=== PATIENT | female | born 1985 | race American Indian/Alaskan Native ===

== ENCOUNTER 2018-10-05 04:19 | Emergency (ER) | payer OTHER ==
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
[2018-10-05] MEDS ORDERED: ceFAZolin 2 GM in NACL 0.9% 100 ML IV ONE (05:00)
[2018-10-05 05:21] LABS: Basophils # (Auto) 0.1 K/mm3 (0.0-0.1); Basophils % (Auto) 0.4 % (0.0-1.8); Eosinophils # (Auto) 0.1 K/mm3 (0.0-0.4); Eosinophils % (Auto) 0.3 % (0.0-4.3); Hematocrit 39.6 % (30.3-42.9); Hemoglobin 13.3 gm/dl (10.1-14.3); Lymphocytes # (Auto) 1.1 K/mm3 (1.2-5.4); Lymphocytes % (Auto) 6.6 % (13.4-35.0); Mean Corpuscular HGB Conc 34 % (30-34); Mean Corpuscular Volume 99 fl (79-97); Monocytes # (Auto) 0.5 K/mm3 (0.0-0.8); Monocytes % (Auto) 2.7 % (0.0-7.3); Platelet Count 213 K/mm3 (140-440); Red Blood Count 3.99 M/mm3 (3.65-5.03); Red Cell Distribution Width 13.9 % (13.2-15.2)
[2018-10-05 05:39] LABS: BUN/Creatinine Ratio 13; Blood Urea Nitrogen 13 mg/dL (7-17); Calcium 8.8 mg/dL (8.4-10.2); Hemolysis Index 8
[2018-10-05 05:40] VITALS: BP 135/89
== END 2018-10-05 05:55 | disposition other institution (70) ==
LOC: ED 04:19
DX: S01.81XA Laceration without foreign body of other part of head, initial encounter (principal); Z98.890 Other specified postprocedural states; Y08.89XA Assault by other specified means, initial encounter; Y93.89 Activity, other specified; Y92.89 Other specified places as the place of occurrence of the external cause; Y99.8 Other external cause status
CPT/HCPCS: 36415; 80048; 84703; 85025; 96365; 99284; G0480; J0690; 80320

== ENCOUNTER 2019-08-06 07:40 | Emergency (ER) | payer SELFPAY ==
[2019-08-06 07:47] VITALS: BP 123/83
--- NOTE | 2019-08-06 07:51 | Emergency Department Report ---
ED Abdominal Pain HPI - General Chief Complaint: Abdominal Pain Stated Complaint: ABD PAIN Source: patient Mode of arrival: Ambulatory Limitations: No Limitations - History of Present Illness Initial Comments: 34-year-old -Citizen Of [place] female presents to the emergency room for 2-day history of lower abdominal pain that has been intermittent but yesterday started to be more constant. Patient states that the pain is sharp and the last 4 hours. Patient is taking nothing for pain. Patient denies any fever chills no vomiting no vaginal bleeding no vaginal discharge or dysuria or urinary urgency. Patient has taken nothing for her pain. Patient states that her last menstrual period was 06/05/2019 and she has taken 2 home test and states that they are negative. Patient is currently on no medications and no control. Patient has no past medical history no known drug allergies. Patient is 4 para 3 with last menstrual period 06/05/2019. Patient did denies any primary care provider or TRUCK ENGINE TECHNICIAN doctor. MD Complaint: abdominal pain Onset/Timin -: days(s) Location: suprapubic Radiation: none Migration to: no migration Severity scale (0 -10): 7 Quality: sharp Consistency: constant Improves With: nothing Worsens With: nothing Associated Symptoms: nausea. denies: vomiting, diarrhea, fever, chills, constipation, dysuria, hematemesis, hematochezia, melena, hematuria, anorexia - Related Data LMP Date: 06/05/19 Allergies Allergy/AdvReac Type Severity Reaction Status Date / Time No Known Allergies Allergy Unverified 10/05/18 04:27 ED Review of Systems ROS: Stated complaint: ABD PAIN Other details as noted in HPI Comment: All other systems reviewed and negative Constitutional: denies: chills, fever Eyes: denies: eye pain, eye discharge, vision change ENT: denies: ear pain, throat pain Respiratory: denies: cough, shortness of breath, wheezing Cardiovascular: denies: chest pain, palpitations Gastrointestinal: abdominal pain, nausea. denies: vomiting, diarrhea, constipation, hematemesis, melena, hematochezia Genitourinary: abnormal menses. denies: urgency, dysuria, frequency, hematuria, discharge, dyspareunia Musculoskeletal: denies: back pain, joint swelling, arthralgia Skin: denies: rash, lesions Neurological: denies: headache, weakness, paresthesias Psychiatric: denies: anxiety, depression ED Past Medical Hx - Past Medical History Previous Medical History?: No - Surgical History Past Surgical History?: Yes Additional Surgical History: C/SX3 - Social History Smoking Status: Current Some Day Smoker Substance Use Type: None ED Physical Exam - General Limitations: No Limitations General appearance: alert, in no apparent distress - Head Head exam: Present: atraumatic, normocephalic - Eye Eye exam: Present: normal appearance - ENT ENT exam: Present: normal exam, mucous membranes moist - Neck Neck exam: Present: normal inspection, full ROM - GI/Abdominal GI/Abdominal exam: Present: soft, tenderness, normal bowel sounds. Absent: distended, guarding, rebound, rigid - Back Exam Back exam: Present: normal inspection, full ROM - Neurological Exam Neurological exam: Present: alert, oriented X3, normal gait - Psychiatric Psychiatric exam: Present: normal affect, normal mood - Skin Skin exam: Present: warm, dry, intact, normal color. Absent: rash ED Course Vital Signs 08/06/19 07:41 Temperature 98.6 F Pulse Rate 89 Respiratory 18 Rate Blood Pressure 123/83 O2 Sat by Pulse 98 Oximetry ED Medical Decision Making - Radiology Data Radiology results: report reviewed Print Report Referring Physician:RUDDY TOMLINPatient Name:CARL MUNIZPatient ID:[id number] of :[id number]:FemaleAccession:[id number] Date:[id number] Status:[place] [address] Ultrasound Report Signed Patient: CARL MUNIZ MR #: [id number] : 1985 Acct:[id number] Age/Sex: 34 / F ADM Date: 08/06/19 Loc: ED Attending Dr: Ordering Physician: ZIGGY PEREZ Date of Service: 08/06/19 Procedure(s): US pelvic complete Accession Number(s): [id number] cc: ZIGGY PEREZ ULTRASOUND PELVIS INDICATION: Pelvic pain with negative urine and test. TECHNIQUE: Transabdominal. Duplex Color Doppler used: Yes. COMPARISON: None available FINDINGS: Uterus: Present. Size: 9.9 x 4.6 x 7.0 cm. Endometrial complex: Normal measuring 0.5 cm. Mass lesions: None. Additional findings: None. Right Ovary: Size: 3.1 x 1.5 x 1.8 cm Blood flow: Normal. Cyst or mass: None. Left Ovary: Size: 3.1 x 2.4 x 3.9 cm Blood flow: Normal. Cyst or mass: No suspicious solid or cystic lesions. A 2 cm dominant follicle is present. Urinary Bladder: Normal. Free Fluid: None. Additional Findings: None. IMPRESSION: 1. No acute sonographic abnormality of the pelvis. Signer Name: Rory Barnes MD Signed: 08/06/2019 12:37 PM Workstation Name: [id number] - Medical Decision Making 34-year-old -Citizen Of [place] female presents to the emergency room for 2-day history of lower abdominal pain that has been intermittent but yesterday started to be more constant. Patient states that the pain is sharp and the last 4 hours. Patient is taking nothing for pain. Patient denies any fever chills no vomiting no vaginal bleeding no vaginal discharge or dysuria or urinary urgency. Patient has taken nothing for her pain. Patient states that her last menstrual period was 06/05/2019 and she has taken 2 home test and states that they are negative. Patient is currently on no medications and no control. Patient has no past medical history no known drug allergies. Patient is 4 para 3 with last menstrual period 06/05/2019. Patient did denies any primary care provider or TRUCK ENGINE TECHNICIAN doctor. Urinalysis and urine tests has been ordered and pending. Urinalysis is negative for any acute findings test is negative. Ultrasound was ordered which shows normal examination. Patient will be discharged home to follow-up with an TRUCK ENGINE TECHNICIAN. Discussed she can take ibuprofen as needed for pain management. Critical care attestation.: If time is entered above; I have spent that time in minutes in the direct care of this critically ill patient, excluding procedure time. ED Disposition Clinical Impression: Pelvic pain Disposition: DC-01 TO HOME OR SELFCARE Is pt being admited?: No Does the pt Need Aspirin: No Condition: Stable Instructions: Abdominal Pain (ED) Additional Instructions: Ultrasounds negative for any acute findings, negative test, negative urinalysis. You can try taking some ibuprofen for pain management and follow-up with a TRUCK ENGINE TECHNICIAN. Referrals: PRIMARY CAREMD [Primary Care Provider] - 3-5 Days [facility] [Provider Group] - 3-5 Days [facility] [Provider Group] - 3-5 Days
[2019-08-06 08:25] LABS: Bilirubin,Urine NEG (Negative); Blood,Urine SM (Negative); Color,Urine Yellow (Yellow); Mucus,Urine FEW /HPF; Protein,Urine <15 mg/dL mg/dL (Negative)
[2019-08-06 08:27] LABS: HCG Qualitative,Urine Negative (Negative)
[2019-08-06] MEDS ORDERED: IBUPROFEN 600 MG TAB PO ONE (08:54)
--- NOTE | 2019-08-06 12:41 | Ultrasound Report ---
ULTRASOUND PELVIS INDICATION: Pelvic pain with negative urine and test. TECHNIQUE: Transabdominal. Duplex Color Doppler used: Yes. COMPARISON: None available FINDINGS: Uterus: Present. Size: 9.9 x 4.6 x 7.0 cm. Endometrial complex: Normal measuring 0.5 cm. Mass lesions: None. Additional findings: None. Right Ovary: Size: 3.1 x 1.5 x 1.8 cm Blood flow: Normal. Cyst or mass: None. Left Ovary: Size: 3.1 x 2.4 x 3.9 cm Blood flow: Normal. Cyst or mass: No suspicious solid or cystic lesions. A 2 cm dominant follicle is present. Urinary Bladder: Normal. Free Fluid: None. Additional Findings: None. IMPRESSION: 1. No acute sonographic abnormality of the pelvis. Signer Name: Rory Barnes MD Signed: 08/06/2019 12:37 PM Workstation Name: [id number]
== END 2019-08-06 12:52 | disposition home or self-care (01) ==
LOC: ED 07:40
DX: R10.2 Pelvic and perineal pain (principal); R11.0 Nausea; F17.200 Nicotine dependence, unspecified, uncomplicated; Z98.890 Other specified postprocedural states
CPT/HCPCS: 76856; 81001; 81025

== ENCOUNTER 2020-12-11 22:50 | Observation (INO) | payer MEDICAID ==
--- NOTE | 2020-12-11 23:25 | Event Note ---
ED Screening Note Date of service: 12/11/20 Time: 23:23 ED Screening Note: 35-year-old female patient with history of alcohol use presents to the emergency department with complaints of abdominal pain, nausea, vomiting, and back pain starting today. Patient is unable to quantify how many episodes of emesis she has experienced today. Patient admits to alcohol consumption today. Additionally, patient endorses sensation of incomplete voiding when using the bathroom. Last menstrual cycle was approximately November 21. General: Awake, appropriately interactive, no acute distress. Neck: Supple. Full range of motion intact. Cardiovascular: Normal peripheral perfusion. Pulmonary: No respiratory distress. Patient is speaking normally without use of accessory muscles. Abdomen: Diffuse abdominal tenderness most pronounced along the suprapubic area and right lower quadrant. Skin: No apparent rashes or lesions. Neurological: No facial asymmetry. Speech is clear. Follows commands. Patient is alert and oriented. Musculoskeletal: Moves all four extremities spontaneously with normal range of motion. Psych: Cooperative. Appropriate mood and affect. I have greeted and performed a focused rapid initial assessment of this patient. A comprehensive ED assessment and evaluation of the patient, analysis of all test results, and completion of the medical decision-making process will be conducted by additional ED providers. This initial assessment/diagnostic orders/clinical plan/treatment(s) is/are subject to change based on patients health status, clinical progression and re-assessment. Further treatment and workup at subsequent clinical provider's discretion. Patient/guardian urged not to elope from the ED as their condition may be serious if not clinically assessed and managed.
--- NOTE | 2020-12-11 23:28 | Emergency Department Report ---
ED Abdominal Pain HPI - General Chief Complaint: Abdominal Pain Stated Complaint: AB PAIN/VOMITING/CHILLS PUI?: Yes Time Seen by Provider: 12/11/20 23:26 Source: patient Mode of arrival: Ambulatory Limitations: No Limitations - History of Present Illness Initial Comments: Patient is a 35-year-old female that presents emergency room with complaints of nausea, vomiting, abdominal pain. Patient states her symptoms started at 8 AM. Patient states she is also having chills after vomiting. Patient denies fever. Patient denies diarrhea. Patient states her symptoms are worsening. Patient states her pain is 10 out of 10. Patient states she was using alcohol yesterday and excess. Patient states that the pain is in her right lower quadrant and her left lower quadrant. Patient states the right lower quadrant is worse than the left lower quadrant. Patient states she is a . Patient states her last menstrual period was 1 week ago. Patient states she has no Covid symptoms. Patient states she is not vaccinated against COVID-19. Patient states she has no past medical history. Patient states she had facial surgery. Patient denies recent travel. Patient denies recent international travel. Patient denies exposure to the novel coronavirus. Patient denies sick contacts. Patient denies fever and chills. Patient denies cough. Patient denies diarrhea. Patient denies coming in contact with anybody with symptoms of the novel coronavirus. MD Complaint: abdominal pain -: Sudden Location: LLQ Radiation: none Migration to: no migration Severity: severe Severity scale (0 -10): 10 Consistency: constant Improves With: rest Worsens With: vomiting, movement Associated Symptoms: nausea, vomiting, chills. denies: diarrhea, fever, constipation, dysuria, hematemesis, hematochezia, melena, hematuria, anorexia, syncope - Related Data LMP (females 10-50): last week Allergies Allergy/AdvReac Type Severity Reaction Status Date / Time No Known Allergies Allergy Unverified 10/05/18 04:27 ED Review of Systems ROS: Stated complaint: AB PAIN/VOMITING/CHILLS Other details as noted in HPI Constitutional: denies: chills, fever Eyes: denies: eye pain, eye discharge, vision change ENT: denies: ear pain, throat pain Respiratory: denies: cough, shortness of breath, wheezing Cardiovascular: denies: chest pain, palpitations Endocrine: no symptoms reported Gastrointestinal: as per HPI, abdominal pain, nausea, vomiting. denies: diarrhea Genitourinary: denies: urgency, dysuria, discharge Musculoskeletal: denies: back pain, joint swelling, arthralgia Skin: denies: rash, lesions Neurological: denies: headache, weakness, paresthesias Psychiatric: denies: anxiety, depression Hematological/Lymphatic: denies: easy bleeding, easy bruising ED Past Medical Hx - Past Medical History Previous Medical History?: No - Surgical History Past Surgical History?: Yes Additional Surgical History: Facial surgery. C/SX3 - Family History Family history: no significant - Social History Smoking Status: Current Some Day Smoker Substance Use Type: Alcohol ED Physical Exam - General Limitations: No Limitations General appearance: alert, in no apparent distress - Head Head exam: Present: atraumatic, normocephalic - Eye Eye exam: Present: normal appearance - ENT ENT exam: Present: mucous membranes moist - Neck Neck exam: Present: normal inspection - Respiratory Respiratory exam: Present: normal lung sounds bilaterally. Absent: respiratory distress - Cardiovascular Cardiovascular Exam: Present: regular rate, normal rhythm. Absent: systolic murmur, diastolic murmur, rubs, gallop - GI/Abdominal GI/Abdominal exam: Present: soft, tenderness (Right lower quadrant abdominal tenderness to palpation.), normal bowel sounds - Extremities Exam Extremities exam: Present: normal inspection - Back Exam Back exam: Present: normal inspection - Neurological Exam Neurological exam: Present: alert, oriented X3 - Psychiatric Psychiatric exam: Present: normal affect, normal mood - Skin Skin exam: Present: warm, dry, intact, normal color. Absent: rash ED Course Vital Signs 12/11/20 12/12/20 12/12/20 23:04 03:09 04:04 Temperature 98.3 F Pulse Rate 81 66 62 Respiratory 22 16 16 Rate Blood Pressure 139/88 117/68 118/68 [Right] O2 Sat by Pulse 100 100 100 Oximetry - Reevaluation(s) Reevaluation #1: Patient states her pain is better. 12/12/20 01:21 Reevaluation #2: I discussed all results with patient. I discussed plan of care with patient. Patient agrees with plan of care and admission. Patient to be admitted to the hospitalist service. 12/12/20 02:21 - Consultations Consultation #1: Hospitalist consulted for admission. Hospitalist to admit patient. 12/12/20 02:21 Consultation #2: I discussed the case with Dr. Cortez, general surgery. Dr. Cortez wants the patient admitted and have Zosyn and n.p.o. 12/12/20 02:24 ED Medical Decision Making - Lab Data Result diagrams: 12/11/20 23:34 12/11/20 23:34 - Radiology Data Radiology results: report reviewed CT ABDOMEN AND PELVIS WITH IV CONTRAST INDICATION: Bi-Lateral lower abd pain with nausea and vomiting. COMPARISON: None available. TECHNIQUE: All CT scans at this facility use dose modulation, automated exposure control, iterative reconstruction or weight based dosing, when appropriate, to reduce radiation dose to as low as reasonably achievable. FINDINGS: Lung Bases: No significant abnormality. Skeletal System: No acute abnormality. ABDOMEN: Liver: No significant abnormality. Gallbladder: No significant abnormality. Bile Ducts: No significant abnormality. Pancreas: No significant abnormality. Spleen: No significant abnormality. Adrenals: No significant abnormality. Right Kidney: No significant abnormality. Left Kidney: No significant abnormality. Upper GI tract: No significant abnormality. Lymph Nodes: No significant adenopathy. Aorta: No significant abnormality. Additional Findings: No significant abnormality. PELVIS: Colon: No acute abnormality. Urinary Bladder and Distal Ureters: No significant abnormality. Appendix: The appendix is mildly dilated and fluid-filled with periappendiceal inflammation. No appendicolith is seen. There is trace free fluid in the right pelvis. Lymph Nodes: No significant adenopathy. Additional Findings: The cervix is prominent. Gynecologic follow-up is recommended. IMPRESSION: 1. Acute appendicitis. There is trace free fluid. No abscess. 2. Incidental findings, as above. - Medical Decision Making Patient is a 35-year-old female presents to the emergency room for nausea vomiting and abdominal pain. Patient states the pain started ADM the day of the visit. Patient symptoms are worsening. Patient had labs done which were essentially unremarkable except for elevated WBC. Patient's is negative.. Patient was given Dilaudid and Zofran and fluids and the patient responded well to treatment. Patient had a CT scan of the abdomen which showed a acute sinusitis. Patient admitted to the hospital service for further evaluation treatment. General consulted and recommendations received. Critical care time documented due to the multiple reassessments, prolonged time at the bedside, interpretation of diagnostics and labs and discussion with consultants.. - Differential Diagnosis Appendicitis, right lower quadrant pain, gastroenteritis, gastritis, nausea Critical Care Time: Yes Critical care time in (mins) excluding proc time.: 35 Critical care attestation.: If time is entered above; I have spent that time in minutes in the direct care of this critically ill patient, excluding procedure time. Critical Care Time: 35 minutes ED Disposition Clinical Impression: Abdominal pain Qualifiers: Abdominal location: right lower quadrant Qualified Code(s): R10.31 - Right lower quadrant pain Nausea & vomiting Qualifiers: Vomiting type: unspecified Vomiting Intractability: non-intractable Qualified Code(s): R11.2 - Nausea with vomiting, unspecified Acute appendicitis Qualifiers: Acute appendicitis type: with localized peritonitis Appendicitis gangrene presence: without gangrene Appendicitis perforation presence: without perforation Appendicitis abscess presence: without abscess Qualified Code(s): K35.30 - Acute appendicitis with localized peritonitis, without perforation or gangrene UTI (urinary tract infection) Qualifiers: Urinary tract infection type: acute cystitis Hematuria presence: with hematuria Qualified Code(s): N30.01 - Acute cystitis with hematuria Disposition: ADMITTED INPATIENT Is pt being admited?: Yes Does the pt Need Aspirin: No Condition: Critical Time of Disposition: 02:24
[2020-12-12 00:04] LABS: Bacteria,Urine 2+ /HPF (Negative); Bilirubin,Urine NEG (Negative); Blood,Urine MOD (Negative); Color,Urine Yellow (Yellow); Mucus,Urine 2+ /HPF; Urobilinogen,Urine < 2.0 mg/dL (<2.0)
[2020-12-12] MEDS ORDERED: HYDROmorphone 1 MG/1 ML INJ IV ONE (00:04)
[2020-12-12] MEDS ORDERED: ONDANSETRON 4 MG/2 ML INJ IV ONE (00:04)
[2020-12-12] MEDS ORDERED: SODIUM CHLORIDE 0.9% 1000 ML 1,000 ML IV ONE ×2 (00:04→02:23)
[2020-12-12 00:09] LABS: Alanine Aminotransferase 10 units/L (7-56); Albumin 4.4 g/dL (3.9-5); BUN/Creatinine Ratio 11; Blood Urea Nitrogen 10 mg/dL (7-17); Calcium 9.5 mg/dL (8.4-10.2); Hemolysis Index 4
[2020-12-12 00:11] LABS: Hematocrit 40.6 % (30.3-42.9); Hemoglobin 13.9 gm/dl (10.1-14.3); Mean Corpuscular HGB Conc 34 % (30-34); Mean Corpuscular Volume 99 fl (79-97); Platelet Count 286 K/mm3 (140-440); Red Blood Count 4.11 M/mm3 (3.65-5.03); Red Cell Distribution Width 13.6 % (13.2-15.2)
[2020-12-12 01:16] LABS: Total Cells Counted 100
[2020-12-12 01:17] LABS: RBC Morphology Normal
--- NOTE | 2020-12-12 01:55 | Cat Scan Report ---
CT ABDOMEN AND PELVIS WITH IV CONTRAST INDICATION: Bi-Lateral lower abd pain with nausea and vomiting. COMPARISON: None available. TECHNIQUE: All CT scans at this facility use dose modulation, automated exposure control, iterative reconstructi on or weight based dosing, when appropriate, to reduce radiation dose to as low as reasonably achieva ble. FINDINGS: Lung Bases: No significant abnormality. Skeletal System: No acute abnormality. ABDOMEN: Liver: No significant abnormality. Gallbladder: No significant abnormality. Bile Ducts: No significant abnormality. Pancreas: No significant abnormality. Spleen: No significant abnormality. Adrenals: No significant abnormality. Right Kidney: No significant abnormality. Left Kidney: No significant abnormality. Upper GI tract: No significant abnormality. Lymph Nodes: No significant adenopathy. Aorta: No significant abnormality. Additional Findings: No significant abnormality. PELVIS: Colon: No acute abnormality. Urinary Bladder and Distal Ureters: No significant abnormality. Appendix: The appendix is mildly dilated and fluid-filled with periappendiceal inflammation. No appen dicolith is seen. There is trace free fluid in the right pelvis. Lymph Nodes: No significant adenopathy. Additional Findings: The cervix is prominent. Gynecologic follow-up is recommended. IMPRESSION: 1. Acute appendicitis. There is trace free fluid. No abscess. 2. Incidental findings, as above. Signer Name: Param Thorne MD Signed: 12/12/2020 1:50 AM Workstation Name: [id number]
[2020-12-12] MEDS ORDERED: PIPERACIL/TAZOBACTA 4.5/NS 100 4.5 GM/100 ML VIAL IV ONE (02:23)
--- NOTE | 2020-12-12 02:44 | History and Physical Report ---
History of Present Illness Date of examination: 12/12/20 Date of admission: 12/12/20 Chief complaint: Abdominal pain History of present illness: Patient is a 35-year-old female. She is seen in ED at bedside. Patient presents with complaints of nausea, vomiting, abdominal pain. Patient states her symptoms started at 8 AM. Patient states her symptoms are worsening. Patient reports using alcohol yesterday and excess and she said she thinks that is what started her symptoms. Patient reported her right lower quadrant pain. Pain level is 9/10. CT of the abdomen/pelvisshows acute appendicitis. General surgeon has been consulted for possible surgery this morning. Patient is n.p.o since midnight. Past History Past Medical History: No medical history Past Surgical History: ( x3) Social history: smoking, full code. denies: alcohol abuse, prescription drug abuse, IV drug use Family history: no significant family history Medications and Allergies Allergies Allergy/AdvReac Type Severity Reaction Status Date / Time No Known Allergies Allergy Unverified 10/05/18 04:27 Active Meds: Active Medications Piperacillin Sod/Tazobactam Sod (Zosyn/Ns 4.5gm/100ml) 4.5 gm in 100 mls @ 200 mls/hr IV ONCE ONE; Protocol Stop: 12/12/20 02:52 Sodium Chloride (Nacl 0.9% 1000 Ml) 1,000 mls @ 999 mls/hr IV BOLUS ONE Stop: 12/12/20 03:23 Review of Systems Constitutional: no malaise Ears, nose, mouth and throat: no epistaxis, no bleeding gums Cardiovascular: no chest pain Respiratory: no congestion Gastrointestinal: abdominal pain, nausea, no melena Musculoskeletal: no neck stiffness, no neck pain Integumentary: no rash, no pruritis, no redness Neurological: no head injury Psychiatric: no disorientation Hematologic/Lymphatic: no easy bruising, no easy bleeding Exam - Constitutional Vitals: Temp Pulse Resp BP Pulse Ox 98.3 F 81 22 139/88 100 12/11/20 23:04 12/11/20 23:04 12/11/20 23:04 12/11/20 23:04 12/11/20 23:04 General appearance: Present: mild distress, well-nourished - EENT Eyes: Present: PERRL ENT: hearing intact, clear oral mucosa - Neck Neck: Present: supple, normal ROM - Respiratory Respiratory effort: normal Respiratory: bilateral: CTA - Cardiovascular Heart Sounds: Present: S1 & S2. Absent: rub, click - Extremities Extremities: pulses symmetrical, No edema Peripheral Pulses: within normal limits - Abdominal General gastrointestinal: Present: soft, tender, normal bowel sounds Female genitourinary: Present: normal - Integumentary Integumentary: Present: clear, warm, dry - Musculoskeletal Musculoskeletal: gait normal, strength equal bilaterally - Psychiatric Psychiatric: appropriate mood/affect, intact judgment & insight, cooperative - Neurologic Neurologic: CNII-XII intact, moves all extremities - Allied Health Allied health notes reviewed: nursing Results - Labs CBC & Chem 7: 12/11/20 23:34 12/11/20 23:34 Labs: Abnormal lab results 12/11/20 12/11/20 12/11/20 Range/Units 23:34 23:34 Unknown WBC 21.8 H (4.5-11.0) K/mm3 MCV 99 H (79-97) fl MCH 34 H (28-32) pg Seg Neuts % (Manual) 89.0 H (40.0-70.0) % Lymphocytes % (Manual) 7.0 L (13.4-35.0) % Seg Neutrophils # Man 19.4 H (1.8-7.7) K/mm3 Monocytes # (Manual) 0.9 H (0.0-0.8) K/mm3 Carbon Dioxide 19 L (22-30) mmol/L Glucose 160 H (65-100) mg/dL Magnesium 1.20 L (1.7-2.3) mg/dL Total Protein 8.4 H (6.3-8.2) g/dL Urine WBC (Auto) 18.0 H (0.0-6.0) /HPF U Epithel Cells (Auto) 50.0 H (0-13.0) /HPF Assessment and Plan - Patient Problems (1) Acute appendicitis Current Visit: Yes Status: Acute Qualifiers: Acute appendicitis type: with localized peritonitis Appendicitis gangrene presence: without gangrene Appendicitis perforation presence: without perforation Appendicitis abscess presence: without abscess Qualified C ode(s): K35.30 - Acute appendicitis with localized peritonitis, without perforation or gangrene Plan to address problem: CT of the abdomen and pelvicsshowed acute appendicitis with trace free fluid, but no abscess. General surgeon consultedpossible appendectomy in the morning Patient is n.p.o. since midnight (2) Abdominal pain Current Visit: Yes Status: Acute Qualifiers: Abdominal location: right lower quadrant Qualified Code(s): R10.31 - Right lower quadrant pain Plan to address problem: Pain management as needed (3) Nausea & vomiting Current Visit: Yes Status: Acute Qualifiers: Vomiting type: unspecified Vomiting Intractability: non-intractable Qualified Code(s): R11.2 - Nausea with vomiting, unspecified Plan to address problem: Antiemetic as needed Continue n.p.o. status (4) DVT prophylaxis Current Visit: Yes Status: Acute Plan to address problem: SCD
[2020-12-12] MEDS ORDERED: oxyCODONE /ACETAMINOPHEN 5-325MG TAB PO PRN (02:46)
[2020-12-12] MEDS ORDERED: MAGNESIUM HYDROXIDE (MOM) ORAL LIQD UDC PO PRN (02:46)
[2020-12-12] MEDS ORDERED: ALUM-MAG HYDROXIDE-SIMETHICONE 200-200-20MG/5ML ORAL LIQD 30 ML PO PRN (02:46)
[2020-12-12] MEDS ORDERED: ONDANSETRON 4 MG/2 ML INJ IV PRN ×2 (02:46→15:30)
[2020-12-12] MEDS ORDERED: ACETAMINOPHEN 325 MG TAB PO PRN (02:46)
[2020-12-12] MEDS ORDERED: SENNOSIDES 8.6 MG TAB PO PRN (02:46)
[2020-12-12] MEDS ORDERED: NALOXONE 0.4 MG/1 ML INJ IV PRN (02:46)
[2020-12-12] MEDS ORDERED: MORPHINE 2 MG/1 ML INJ IV PRN (02:46)
[2020-12-12] MEDS ORDERED: METOCLOPRAMIDE 10 MG/2 ML INJ IV PRN (02:46)
[2020-12-12] MEDS ORDERED: traZODone 50 MG TAB PO PRN (02:49)
[2020-12-12] MEDS ORDERED: traMADol 50 MG TAB PO PRN (02:49)
[2020-12-12] MEDS ORDERED: SODIUM CHLORIDE 0.9% 1000 ML 1,000 ML IV SCH (03:00)
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
--- NOTE | 2020-12-12 09:51 | Anesthesia Day of Surgery ---
Anesthesia Day of Surgery - Day of Surgery Patient Examined: Yes Patient H&P Reviewed: Yes Patient is NPO: Yes
[2020-12-12] MEDS ORDERED: PIPERACIL/TAZOBACTA 4.5/NS 100 4.5 GM/100 ML VIAL IV SCH (11:00)
--- NOTE | 2020-12-12 12:03 | Consultation ---
History of Present Illness Consult date: 12/12/20 Reason for consult: abdominal pain Chief complaint: Abdominal pain - History of present illness History of present illness: 35-year-old female with no past medical history who presents to the emergency ro om with 48-hour history of right lower quadrant abdominal pain. The pain is localized to the right lower quadrant and is sharp, does not radiate. She has never had pain like this in the past. She states it started suddenly and gradually got worse. She initially thought she may have had food or alcohol poisoning however states that the pain did not get better. She admits to nonbilious/nonbloody emesis. No alleviating or exacerbating factors. She does give a history of constipation. No fevers or chills. Past History Past Medical History: No medical history Past Surgical History: ( x3) Social history: smoking, full code. denies: alcohol abuse, prescription drug abuse, IV drug use Family history: no significant family history Medications and Allergies Allergies Allergy/AdvReac Type Severity Reaction Status Date / Time No Known Allergies Allergy Unverified 10/05/18 04:27 Active Meds: Active Medications Acetaminophen (Acetaminophen 325 Mg Tab) 650 mg PO Q4H PRN PRN Reason: Pain MILD(1-3)/Fever >100.5/WILDE Al Hydrox/Mg Hydrox/Simethicone (Alum-Mag Hydroxide-Simethicone [phone]/5ml Oral Liqd 30 Ml) 30 ml PO Q4H PRN PRN Reason: Indigestion Sodium Chloride (Nacl 0.9% 1000 Ml) 1,000 mls @ 75 mls/hr IV DIRECT TAYE Last Admin: 12/12/20 03:05 Dose: 75 mls/hr Documented by: Piperacillin Sod/Tazobactam Sod (Zosyn/Ns 4.5gm/100ml) 4.5 gm in 100 mls @ 200 mls/hr IV Q8H TAYE; Protocol Magnesium Hydroxide (Magnesium Hydroxide (Mom) Oral Liqd Udc) 30 ml PO Q4H PRN PRN Reason: Constipation Metoclopramide HCl (Metoclopramide 10 Mg/2 Ml Inj) 10 mg IV Q6H PRN PRN Reason: Nausea And Vomiting Morphine Sulfate (Morphine 2 Mg/1 Ml Inj) 2 mg IV Q4H PRN PRN Reason: Pain, Moderate (4-6) Naloxone HCl (Naloxone 0.4 Mg/1 Ml Inj) 0.1 mg IV Q2MIN PRN PRN Reason: Res Rate </= 8 or 02 SAT < 92% Ondansetron HCl (Ondansetron 4 Mg/2 Ml Inj) 4 mg IV Q8H PRN PRN Reason: Nausea And Vomiting Oxycodone/Acetaminophen (Oxycodone /Acetaminophen 5-325mg Tab) 1 tab PO Q6H PRN PRN Reason: Pain, Moderate (4-6) Senna (Sennosides 8.6 Mg Tab) 8.6 mg PO Q12HR PRN PRN Reason: Constipation Sodium Chloride (Sodium Chloride 0.9% 10 Ml Flush Syringe) 10 ml IV BID TAYE Last Admin: 12/12/20 11:31 Dose: Not Given Documented by: Trazodone HCl (Trazodone 50 Mg Tab) 50 mg PO QHS PRN PRN Reason: Insomnia Review of Systems All systems: negative (10 point ROS performed and negative except for that listed in HPI) Exam Vital Signs Temp Pulse Resp BP Pulse Ox 98.3 F 81 22 139/88 100 12/11/20 23:04 12/11/20 23:04 12/11/20 23:04 12/11/20 23:04 12/11/20 23:04 Narrative exam: Gen.: Awake, alert, oriented x3. No apparent distress ENT: Trachea midline. No lymphadenopathy. No scleral icterus or conjunctival pallor CV: S1, S2 present Respiratory: No audible wheezes Abdomen: Soft, nondistended, and and is to palpation in the right lower maurisio drant. Well-healed surgical scars. No rebound, rigidity, guarding Extremities: No clubbing, cyanosis, edema Results - Labs 12/11/20 23:34 12/11/20 23:34 Abnormal lab results 12/11/20 12/11/20 12/11/20 Range/Units 23:34 23:34 Unknown WBC 21.8 H (4.5-11.0) K/mm3 MCV 99 H (79-97) fl MCH 34 H (28-32) pg Seg Neuts % (Manual) 89.0 H (40.0-70.0) % Lymphocytes % (Manual) 7.0 L (13.4-35.0) % Seg Neutrophils # Man 19.4 H (1.8-7.7) K/mm3 Monocytes # (Manual) 0.9 H (0.0-0.8) K/mm3 Carbon Dioxide 19 L (22-30) mmol/L Glucose 160 H (65-100) mg/dL Magnesium 1.20 L (1.7-2.3) mg/dL Total Protein 8.4 H (6.3-8.2) g/dL Urine WBC (Auto) 18.0 H (0.0-6.0) /HPF U Epithel Cells (Auto) 50.0 H (0-13.0) /HPF Diabetes panel 12/11/20 Range/Units 23:34 Sodium 139 (137-145) mmol/L Potassium 3.7 (3.6-5.0) mmol/L Chloride 102.9 (98-107) mmol/L Carbon Dioxide 19 L (22-30) mmol/L BUN 10 (7-17) mg/dL Creatinine 0.9 (0.6-1.2) mg/dL Glucose 160 H (65-100) mg/dL Calcium 9.5 (8.4-10.2) mg/dL AST 15 (5-40) units/L ALT 10 (7-56) units/L Alkaline Phosphatase 83 (35-129) units/L Total Protein 8.4 H (6.3-8.2) g/dL Albumin 4.4 (3.9-5) g/dL Calcium panel 12/11/20 Range/Units 23:34 Calcium 9.5 (8.4-10.2) mg/dL Albumin 4.4 (3.9-5) g/dL Pituitary panel 12/11/20 Range/Units 23:34 Sodium 139 (137-145) mmol/L Potassium 3.7 (3.6-5.0) mmol/L Chloride 102.9 (98-107) mmol/L Carbon Dioxide 19 L (22-30) mmol/L BUN 10 (7-17) mg/dL Creatinine 0.9 (0.6-1.2) mg/dL Glucose 160 H (65-100) mg/dL Calcium 9.5 (8.4-10.2) mg/dL Adrenal panel 12/11/20 Range/Units 23:34 Sodium 139 (137-145) mmol/L Potassium 3.7 (3.6-5.0) mmol/L Chloride 102.9 (98-107) mmol/L Carbon Dioxide 19 L (22-30) mmol/L BUN 10 (7-17) mg/dL Creatinine 0.9 (0.6-1.2) mg/dL Glucose 160 H (65-100) mg/dL Calcium 9.5 (8.4-10.2) mg/dL Total Bilirubin 0.80 (0.1-1.2) mg/dL AST 15 (5-40) units/L ALT 10 (7-56) units/L Alkaline Phosphatase 83 (35-129) units/L Total Protein 8.4 H (6.3-8.2) g/dL Albumin 4.4 (3.9-5) g/dL - Imaging CT scan - abdomen: report reviewed, image reviewed CT scan - pelvis: report reviewed, image reviewed Assessment and Plan 35-year-old female with acute appendicitis Plan: 1. continue NPO 2. IVF 3. IV abx - on zosyn 4. prn pain and nausea control 5. DVT ppx 6. Recommend appendectomy. All lab and imaging results discussed with the patient. We discussed all risks, benefits, alternatives of surgery and questions were answered. Patient is agreeable to proceed. Consent obtained for laparoscopic, possible open appendectomy. We will proceed to the OR today. Thank you for this consultation. Please call with any questions or concerns. Evaluation and treatment of this patient was during the time of the national and state emergency arising from COVID19 coronavirus pandemic. Treatment and procedures performed meet the current and available best practice and guidelines for patient during the COVID pandemic.
[2020-12-12] MEDS ORDERED: propofoL 200 MG/20 ML VIAL IV ONE (12:33)
[2020-12-12] MEDS ORDERED: KETOROLAC 30 MG/1 ML INJ ONE (12:33)
[2020-12-12] MEDS ORDERED: fentaNYL 100 MCG/2 ML INJ ONE (12:33)
[2020-12-12] MEDS ORDERED: dexAMETHasone 20 MG/5 ML VIAL ONE (12:33)
[2020-12-12] MEDS ORDERED: MIDAZOLAM 2 MG/2 ML INJ ONE (12:33)
[2020-12-12] MEDS ORDERED: ONDANSETRON 4 MG/2 ML INJ ONE (12:34)
[2020-12-12] MEDS ORDERED: ROCURONIUM 50 MG/5 ML INJ IV ONE (12:34)
[2020-12-12] MEDS ORDERED: BUPIVACAINE/PF (0.5%) 5 MG/1 ML 30 ML VIAL INFILTRATI ONE ×2 (13:24→14:24)
[2020-12-12] MEDS ORDERED: LIDOCAINE (1%) 10 MG/1 ML VIAL 20 ML MDV ONE (13:24)
[2020-12-12] MEDS ORDERED: LIDOCAINE MPF (2%) 20 MG/1 ML VIAL 5 ML ONE (14:00)
[2020-12-12] MEDS ORDERED: NEOSTIGMINE 10MG/10 ML INJ MDV ONE (14:00)
[2020-12-12] MEDS ORDERED: SODIUM CHLORIDE 0.9% IRR 1,500 ML BOTTLE IR ONE (14:25)
[2020-12-12] MEDS ORDERED: LIDOCAINE (1%) 10 MG/1 ML VIAL 20 ML MDV INFILTRATI ONE (14:25)
[2020-12-12] MEDS ORDERED: SODIUM CHLORIDE 0.9% IRRIG SOLN 2000 ML IR ONE (14:25)
[2020-12-12] MEDS ORDERED: WATER FOR IRRIG STERILE 1,500 ML BOTTLE IR ONE (14:26)
[2020-12-12] MEDS ORDERED: GLYCOPYRROLATE 0.4 MG/2 ML INJ ONE (14:28)
--- NOTE | 2020-12-12 14:42 | Operative Report ---
Operative Report Operative Report: Date of operation: 12/12/2020 Preoperative diagnosis: acute appendicitis Postoperative diagnosis: acute appendicitis Procedure performed: Laparoscopic appendectomy Surgeon: Gino Callaway DO Anesthesia: GETA Findings: Thickened appendix. No evidence of perforation EBL:<10cc Specimen: appendix Disposition/Condition: stable to PACU HPI and indication: 35 year-old F presented to ER with RLQ pain x48 hours, n/v. She was found to have periumbilical TTP, an elevated WBC and acute appendicitis on CT scan. Appendectomy was recommended to the patient. All risks, benefits, alternatives of surgery were discussed and questions answered. The patient was agreeable to proceed with surgery. Consent obtained for laparoscopic appendectomy, possible open. Procedure in detail: Patient was identified in the hospital bed and taken back to the OR and placed on the OR table in supine position. After anesthesia was induced a bui catheter was steriley placed by the circulating nurse. A time out was performed. Local anesthetic was infiltrated into all skin incision sites. A supraumbilical incision was made and veress needle inserted. The positioning of the veress needle was confirmed using the saline drop test and the abdomen was then insufflated to 15mmHg without incident. The veress was then removed and a 5 mm Optiview trocar was placed via the supraumbilical incision. The abdomen was inspected and no underlying injury to the abdominal structures was identified. A 5mm trocar suprapubic and a 12 mm LLQ trocar were placed under direct visualization. The patient was placed in Trendelenburg and tilted to the left. There was a single omental adhesion to the anterior abdominal wall which was taken down using the harmonic. The appendix was visualized appeared thickened and inflamed without evidence of perforation. Fibrinous adhesions from the appendix to pelvic side wall were bluntly dissected. The base of the appendix was identified. The mesentery of the appendix was ligated using the harmonic scalpel. The base of the appendix was transected using an ethicon flex stapler 45mm white load. The base was unremarkable without inflammation The appendix was placed into an endocatch bag and removed via the 12 mm port. This was passed off the table as specimen. The staple line and mesentery were then inspected. There was no bleeding and hemostasis was ensured. The 12mm port fascia was closed with a single interrupted 0 vicryl stitch using the Ronnie Arango device. The supraumbilical port fascia was also approximated using a single interrupted 0 vicryl stitch using the Ronnie Arango device as this was the site of a small <0.5cm hernia. The remaining port was removed and the abdomen desufflated. All skin incisions were closed using 4-0 monocryl subcuticular stitches and skin glue. Local anesthetic was once again infiltrated into the incision sites. At the end of the case, all sponge, instrument, sharp counts were correct x2. The patient was awoken from anesthesia, bui catheter removed, and she was taken to PACU in stable condition.
--- NOTE | 2020-12-12 15:02 | Discharge Summary ---
Providers - Providers Date of Admission: 12/12/20 02:28 Date of discharge: 12/12/20 Attending physician: EDYTA CARTER MD 12/12/20 02:26 Consult to Physician [CONS] Routine Comment: Dr. Arreola spoke with Dr. Cortez @ 0222 Consulting Provider: ELIAZAR CORTEZ Physician Instructions: Reason For Exam: acute api 12/12/20 02:27 Consult to Physician [CONS] Routine Comment: Consulting Provider: ZACHARIAH SERRANO Physician Instructions: Reason For Exam: acute api Primary care physician: SABA MORGAN II, MD Hospitalization Reason for admission: abd pain Condition: Fair Hospital course: History of present illness: Patient is a 35-year-old female. She is seen in ED at bedside. Patient presents with complaints of nausea, vomiting, abdominal pain. Patient states her symptoms started at 8 AM. Patient states her symptoms are worsening. Patient reports using alcohol yesterday and excess and she said she thinks that is what started her symptoms. Patient reported her right lower quadrant pain. Pain level is 9/10. CT of the abdomen/pelvisshows acute appendicitis. General surgeon has been consulted for possible surgery this morning. Patient is n.p.o since midnight. Hospital course: Surgeon completed appendectomy. Recovering uneventfully post op. Plan for d/c home with prn [place] rx and prn zofran rx Disposition: 01 HOME / SELF CARE / HOMELESS Final Discharge Diagnosis (Prints w/discharge instructions): Acute Appendicitis Time spent for discharge: 25 - Discharge Diagnoses (1) Abdominal pain Status: Acute Qualifiers: Abdominal location: right lower quadrant Qualified Code(s): R10.31 - Right lower quadrant pain (2) Acute appendicitis Status: Acute Qualifiers: Acute appendicitis type: with localized peritonitis Appendicitis gangrene presence: without gangrene Appendicitis perforation presence: without perforation Appendicitis abscess presence: without abscess Qualified Code(s) : K35.30 - Acute appendicitis with localized peritonitis, without perforation or gangrene (3) Nausea & vomiting Status: Acute Qualifiers: Vomiting type: unspecified Vomiting Intractability: non-intractable Qualified Code(s): R11.2 - Nausea with vomiting, unspecified (4) UTI (urinary tract infection) Status: Acute Qualifiers: Urinary tract infection type: acute cystitis Hematuria presence: with hematuria Qualified Code(s): N30.01 - Acute cystitis with hematuria Core Measure Documentation - Palliative Care Palliative Care/ Comfort Measures: Not Applicable - Core Measures Any of the following diagnoses?: none Exam - Physical Exam Narrative exam: General appearance: Present: mild distress, well-nourished - EENT Eyes: Present: PERRL ENT: hearing intact, clear oral mucosa - Neck Neck: Present: supple, normal ROM - Respiratory Respiratory effort: normal Respiratory: bilateral: CTA - Cardiovascular Heart Sounds: Present: S1 & S2. Absent: rub, click - Extremities Extremities: pulses symmetrical, No edema Peripheral Pulses: within normal limits - Abdominal General gastrointestinal: Present: soft, tender, normal bowel sounds Female genitourinary: Present: normal - Integumentary Integumentary: Present: clear, warm, dry - Musculoskeletal Musculoskeletal: gait normal, strength equal bilaterally - Psychiatric Psychiatric: appropriate mood/affect, intact judgment & insight, cooperative - Neurologic Neurologic: CNII-XII intact, moves all extremities - Allied Health Allied health notes reviewed: nursing - Constitutional Vitals: Temp Pulse Resp BP Pulse Ox 97.3 F L 101 H 11 L 142/96 99 12/12/20 14:42 12/12/20 14:50 12/12/20 14:50 12/12/20 14:50 12/12/20 14:50 Plan Activity: advance as tolerated, avoid flexion Weight Bearing Status: Full Weight Bearing Diet: low fat, low cholesterol Wound: open to air, keep clean and dry, per your surgeon's advice Follow up with: SABA MORGAN II, MD [Primary Care Provider] - 3-5 Days ZACHARIAH SERRANO DO [Staff Physician] - 14 Days Prescriptions: HYDROcodone/APAP 5-325 [[place] 5/325] 1 each PO Q6HR PRN #20 tablet PRN Reason: Pain , Severe (7-10) Ondansetron [Zofran Odt] 4 mg PO Q8HR PRN #30 tab.rapdis PRN Reason: Nausea
[2020-12-12] MEDS ORDERED: HYDROmorphone 1 MG/1 ML INJ IV PRN ×2 (15:30)
[2020-12-12 16:20] VITALS: BP 115/75
== END 2020-12-12 16:00 | disposition home or self-care (01) ==
LOC: ED 22:50 → 4A 12-12 02:28
PROVIDERS: ADMIT Hospitalist; ATTEND Internal Medicine
DX: K35.80 Unspecified acute appendicitis (principal); N39.0 Urinary tract infection, site not specified; Z90.710 Acquired absence of both cervix and uterus
CPT/HCPCS: 36415; 44970; 74177; 80053; 81001; 83690; 83735; 84703; 85007; 85025; 87086; 96361; 96365; 96366; 96375; 99291; A4217; G0378; J1100; J1170; J1885; J2250; J2405; J2543; J2704; J3010; J7030; Q9967; 80320; 88304; G0480; J2710

== ENCOUNTER 2021-01-03 15:31 | Emergency (ER) | payer MEDICAID ==
--- NOTE | 2021-01-03 16:17 | Emergency Department Report ---
<RUDDY TOMLIN - Last Filed: 01/03/21 18:54> ED Abdominal Pain HPI - General Chief Complaint: Nausea/Vomiting/Diarrhea Stated Complaint: VOMITING PUI?: No Source: patient Mode of arrival: Ambulatory Limitations: No Limitations - History of Present Illness Initial Comments: The patient was evaluated in the emergency department for symptoms described in the history of present illness. He/she was evaluated in the context of the global COVID-19 pandemic, which necessitated consideration that the patient might be at risk for infection with the virus that causes COVID-19. Institutional protocols and algorithms that pertain to the evaluation of patients at risk for COVID-19 are in a state of rapid change based on informa tion released by regulatory bodies including the CDC and federal and state organizations. These policies and algorithms were followed during the patient's care in the emergency department. Please note that these policies, procedures and recommendations changed on a rapid basis. 35-year-old obese -Dominican female presents to the emergency room complaining of nausea and vomiting for 3 days. Patient reports that she recently had her appendix removed on 12/11/2020. She reports that she is vomiting up bile. She states that when she is not eating she tends to vomit. She has also been reported not able to have a bowel movement. She admits to nausea but able to drink. Denies any abdominal pain. She does report smoking marijuana daily. Denies any cigarette use denies any dysuria. States her last menstrual period was November 24, 2020. She does admit to hot and cold. States that she had her appendix taken out here with Dr. Callaway. Severity scale (0 -10): 4 - Related Data Previous Rx's Medication Instructions Recorded Last Taken Type HYDROcodone/APAP 5-325 [[place] 1 each PO Q6HR PRN #20 tablet 12/12/20 Unknown Rx 5/325] Ondansetron [Zofran Odt] 4 mg PO Q8HR PRN #30 tab.rapdis 12/12/20 Unknown Rx Docusate Sodium [Colace] 100 mg PO BID PRN #10 capsule 01/03/21 Unknown Rx Metoclopramide [Reglan] 10 mg PO Q8HR PRN #14 tab 01/03/21 Unknown Rx Allergies Allergy/AdvReac Type Severity Reaction Status Date / Time No Known Allergies Allergy Unverified 10/05/18 04:27 ED Past Medical Hx - Past Medical History Previous Medical History?: No - Surgical History Hx Appendectomy: Yes Additional Surgical History: Facial surgery. C/SX3 - Social History Smoking Status: Current Some Day Smoker Substance Use Type: Alcohol - Medications Home Medications: Home Medications Medication Instructions Recorded Confirmed Last Taken Type HYDROcodone/APAP 5-325 [[place] 1 each PO Q6HR PRN #20 tablet 12/12/20 Unknown Rx 5/325] Ondansetron [Zofran Odt] 4 mg PO Q8HR PRN #30 tab.rapdis 12/12/20 Unknown Rx Docusate Sodium [Colace] 100 mg PO BID PRN #10 capsule 01/03/21 Unknown Rx Metoclopramide [Reglan] 10 mg PO Q8HR PRN #14 tab 01/03/21 Unknown Rx ED Physical Exam - General Limitations: No Limitations General appearance: alert, in no apparent distress - Head Head exam: Present: atraumatic, normocephalic - Eye Eye exam: Present: normal appearance - ENT ENT exam: Present: normal exam, mucous membranes moist, normal external ear exam - Neck Neck exam: Present: normal inspection, full ROM - Respiratory Respiratory exam: Present: normal lung sounds bilaterally, accessory muscle use - Cardiovascular Cardiovascular Exam: Present: regular rate - GI/Abdominal GI/Abdominal exam: Present: soft. Absent: distended, tenderness, guarding - Extremities Exam Extremities exam: Present: normal inspection - Back Exam Back exam: Present: normal inspection - Neurological Exam Neurological exam: Present: alert, oriented X3. Absent: normal gait - Psychiatric Psychiatric exam: Present: normal affect, normal mood - Skin Skin exam: Present: warm, dry, intact, normal color. Absent: rash ED Medical Decision Making - Lab Data Result diagrams: 01/03/21 16:13 01/03/21 16:13 Laboratory Tests 01/03/21 01/03/21 01/03/21 16:13 16:13 16:13 WBC 13.5 H RBC 3.89 Hgb 13.3 Hct 38.3 MCV 99 H MCH 34 H MCHC 35 H RDW 13.4 Plt Count 288 Lymph % (Auto) 14.6 Callaway % (Auto) 5.4 Eos % (Auto) 1.0 Baso % (Auto) 0.8 Lymph # (Auto) 2.0 Callaway # (Auto) 0.7 Eos # (Auto) 0.1 Baso # (Auto) 0.1 Seg Neutrophils % 78.2 H Seg Neutrophils # 10.6 H Sodium 137 Potassium 3.4 L Chloride 101.7 Carbon Dioxide 22 Anion Gap 17 BUN 8 Creatinine 0.8 Estimated GFR > 60 BUN/Creatinine Ratio 10 Glucose 115 H Calcium 9.9 Total Bilirubin 0.60 AST 13 ALT 8 Alkaline Phosphatase 75 Total Protein 8.7 H Albumin 4.7 Albumin/Globulin Ratio 1.2 Lipase 21 HCG, Quant 29164 H Urine Bilirubin Urine RBC (Auto) U Epithel Cells (Auto) 01/03/21 18:36 WBC RBC Hgb Hct MCV MCH MCHC RDW Plt Count Lymph % (Auto) Callaway % (Auto) Eos % (Auto) Baso % (Auto) Lymph # (Auto) Callaway # (Auto) Eos # (Auto) Baso # (Auto) Seg Neutrophils % Seg Neutrophils # Sodium Potassium Chloride Carbon Dioxide Anion Gap BUN Creatinine Estimated GFR BUN/Creatinine Ratio Glucose Calcium Total Bilirubin AST ALT Alkaline Phosphatase Total Protein Albumin Albumin/Globulin Ratio Lipase HCG, Quant Urine Bilirubin Neg Urine RBC (Auto) 3.0 U Epithel Cells (Auto) 19.0 H - Medical Decision Making 35-year-old obese -Dominican female presents to the emergency room complaining of nausea and vomiting for 3 days. Patient reports that she recently had her appendix removed on 12/11/2020. She reports that she is vomiting up bile. She states that when she is not eating she tends to vomit. She has also been reported not able to have a bowel movement. She admits to nausea but able to drink. Denies any abdominal pain. She does report smoking marijuana daily. D enies any cigarette use denies any dysuria. States her last menstrual period was November 24, 2020. She does admit to hot and cold. States that she had her appendix taken out here with Dr. Callaway. Discussed with patient that [place] [address]. Patient is 4 para 4. Last menstrual period was 12/25/2020. Went ahead and order ultrasound OB less than 14 weeks with transvaginal. The patient's care has been transferred to and accepted by[ Liz Alexander PA-C }. We discussed: The patient's chief complaints; labs and imaging that have been completed and those that are still pending; any treatment provided and the patient's response to treatment; any significant change in condition; the treatment plan prior to the transfer of care. The accepting provider will follow up on all pending labs and imaging and make any necessary changes to the current impression and/or treatment plan. The accepting physician/midlevel is now responsible for the patient's care and final disposition. - Differential Diagnosis Constipation, obstruction, ED Disposition Clinical Impression: Nausea & vomiting Qualifiers: Vomiting type: unspecified Vomiting Intractability: non-intractable Qualified Code(s): R11.2 - Nausea with vomiting, unspecified Qualifiers: Weeks of gestation: 8 weeks Qualified Code(s): Z3A.08 - 8 weeks gestation of Disposition: HOME / SELF CARE / HOMELESS Condition: Stable Instructions: Morning Sickness Additional Instructions: Please take medication as prescribed. Increase your fluid intake. Eat a bland liquid diet and sleep into diet as tolerated. Follow-up with [facility] in the next 2 to 3 days for reexamination. Return to emergency room immediately for any new or worsening symptoms. Prescriptions: Docusate Sodium [Colace] 100 mg PO BID PRN #10 capsule PRN Reason: constipation Metoclopramide [Reglan] 10 mg PO Q8HR PRN #14 tab PRN Reason: nausea/vomiting Referrals: DINAH GOODMAN MD [Staff Physician] - 2-3 Days PRIMARY CAREMD [Primary Care Provider] - 2-3 Days Print Language: SLOVENIAN <LIZ ALEXANDER - Last Filed: 01/04/21 21:49> ED Review of Systems ROS: Stated complaint: VOMITING Other details as noted in HPI ED Course Vital Signs 01/03/21 01/03/21 15:46 22:16 Temperature 98.6 F Pulse Rate 90 94 H Respiratory 18 16 Rate Blood Pressure 147/78 115/69 [Left] O2 Sat by Pulse 100 100 Oximetry ED Medical Decision Making - Lab Data Result diagrams: 01/03/21 16:13 01/03/21 16:13 - Radiology Data Radiology results: report reviewed Ordering Physician: ZIGGY PEREZ Date of Service: 01/03/21 Procedure(s): US OB <= 14 wk fetus add gest Accession Number(s): [id number] cc: ZIGGY PEREZ ULTRASOUND OBSTETRIC REASON FOR EXAM: Nausea vomiting abdominal pain TECHNIQUE: Transabdominal and transvaginal ultrasound was performed to evaluate a first trimester . COMPARISON: None available. FINDINGS: Study is limited due to extensive shadowing from bowel gas. The patient terminated the transvaginal portion of the examination prematurely. FINDINGS: The pole, yolk sac, and gestational sac are normal in appearance. [place]-rump length: 29 mm. This corresponds with a gestational age of 8 weeks 1 day. heart rate: 132 bpm Perigestational hemorrhage: No evidence of perigestational hemorrhage on the provided images. MATERNAL FINDINGS: The uterus demonstrates otherwise unremarkable sonographic appearance. Neither ovary is visualized. No significant cystic or solid mass in either adnexa. Cul-de-sac: Free fluid is present, likely physiologic IMPRESSION: Limited study. Viable intrauterine . Gestational age is 8 weeks 1 day by ultrasound. Recommend clinical screening and ultrasound follow-up in the second trimester to screen for anomalies. Signer Name: Yanick Fallon MD Signed: 01/03/2021 8:01 PM Workstation Name: [id number] Transcribed By: VENANCIO Dictated By: YANICK FALLON MD Electronically Authenticated By: YANICK FALLON MD Signed Date/Time: 01/03/212000 DD/ 57 TD/TT: - Medical Decision Making Care resume from Cheri Tomlin PA-C at shift change pending ultrasound. Patient presented for nausea and vomiting. She denies any abdominal pain. Patient was given IV medications and had no further episodes of vomiting was able to tolerate p.o. intake without difficulty. Patient states that she went to the bathroom while in the emergency department and was able to have a normal bowel movement without any difficulty and has been able to pass gas. Given that patient is still able to move her bowels and has no further vomiting and was able to tolerate p.o. intake, less likely concern for obstruction. OB ultrasound shows Limited study. Viable intrauterine . Gestational age is 8 weeks 1 day by ultrasound. Recommend clinical screening and ultrasound follow-up in the second trimester to screen for anomalies. Discussed results with patient discussed the importance of OB follow-up. Discussed return precautions. Advised return to emergency room for any new or worsening symptoms. Critical care attestation.: If time is entered above; I have spent that time in minutes in the direct care of this critically ill patient, excluding procedure time. ED Disposition Is pt being admited?: No Does the pt Need Aspirin: No Time of Disposition: 21:51
[2021-01-03 16:23] LABS: Basophils # (Auto) 0.1 K/mm3 (0.0-0.1); Basophils % (Auto) 0.8 % (0.0-1.8); Eosinophils # (Auto) 0.1 K/mm3 (0.0-0.4); Hematocrit 38.3 % (30.3-42.9); Hemoglobin 13.3 gm/dl (10.1-14.3); Lymphocytes % (Auto) 14.6 % (13.4-35.0); Mean Corpuscular HGB Conc 35 % (30-34); Mean Corpuscular Volume 99 fl (79-97); Monocytes # (Auto) 0.7 K/mm3 (0.0-0.8); Monocytes % (Auto) 5.4 % (0.0-7.3); Platelet Count 288 K/mm3 (140-440); Red Blood Count 3.89 M/mm3 (3.65-5.03); Red Cell Distribution Width 13.4 % (13.2-15.2)
[2021-01-03 17:11] LABS: Alanine Aminotransferase 8 units/L (7-56); Albumin 4.7 g/dL (3.9-5); BUN/Creatinine Ratio 10; Blood Urea Nitrogen 8 mg/dL (7-17); Calcium 9.9 mg/dL (8.4-10.2); Hemolysis Index 8
[2021-01-03] MEDS ORDERED: METOCLOPRAMIDE 10 MG/2 ML INJ IV ONE (18:38)
[2021-01-03 18:54] LABS: Bilirubin,Urine NEG (Negative); Blood,Urine NEG (Negative); Color,Urine Amber (Yellow); Mucus,Urine 3+ /HPF
--- NOTE | 2021-01-03 20:06 | Ultrasound Report ---
ULTRASOUND OBSTETRIC REASON FOR EXAM: Nausea vomiting abdominal pain TECHNIQUE: Transabdominal and transvaginal ultrasound was performed to evaluate a first trimester pre gnancy. COMPARISON: None available. FINDINGS: Study is limited due to extensive shadowing from bowel gas. The patient terminated the bui svaginal portion of the examination prematurely. FINDINGS: The pole, yolk sac, and gestational sac are normal in appearance. [place]-rump length: 29 mm. This corresponds with a gestational age of 8 weeks 1 day. heart rate: 132 bpm Perigestational hemorrhage: No evidence of perigestational hemorrhage on the provided images. MATERNAL FINDINGS: The uterus demonstrates otherwise unremarkable sonographic appearance. Neither ovary is visualized. No significant cystic or solid mass in either adnexa. Cul-de-sac: Free fluid is present, likely physiologic IMPRESSION: Limited study. Viable intrauterine . Gestational age is 8 weeks 1 day by ultrasound. Recomme nd clinical screening and ultrasound follow-up in the second trimester to screen for anomalies. Signer Name: Rigo Fallon MD Signed: 01/03/2021 8:01 PM Workstation Name: [id number]
[2021-01-03 22:17] VITALS: BP 115/69
== END 2021-01-03 22:16 | disposition home or self-care (01) ==
LOC: ED 15:31
DX: O26.91 Pregnancy related conditions, unspecified, first trimester (principal); Z3A.08 8 weeks gestation of pregnancy; F17.200 Nicotine dependence, unspecified, uncomplicated; F10.20 Alcohol dependence, uncomplicated; Z90.89 Acquired absence of other organs
CPT/HCPCS: 36415; 76801; 76817; 80053; 81001; 83690; 84702; 85025; 96374; 99284; J2765; 76802

== ENCOUNTER 2021-01-09 14:43 | Emergency (ER) | payer MEDICAID ==
[2021-01-09] MEDS ORDERED: METOCLOPRAMIDE 10 MG/2 ML INJ IV ONE (15:30)
[2021-01-09] MEDS ORDERED: SODIUM CHLORIDE 0.9% 1000 ML 1,000 ML IV ONE (15:30)
[2021-01-09 16:10] LABS: Basophils # (Auto) 0.1 K/mm3 (0.0-0.1); Basophils % (Auto) 0.9 % (0.0-1.8); Eosinophils # (Auto) 0.1 K/mm3 (0.0-0.4); Eosinophils % (Auto) 0.9 % (0.0-4.3); Hemoglobin 12.8 gm/dl (10.1-14.3); Lymphocytes # (Auto) 2.7 K/mm3 (1.2-5.4); Lymphocytes % (Auto) 22.5 % (13.4-35.0); Monocytes # (Auto) 0.6 K/mm3 (0.0-0.8); Monocytes % (Auto) 4.7 % (0.0-7.3)
[2021-01-09 16:14] LABS: Alanine Aminotransferase 10 units/L (7-56); Albumin 4.5 g/dL (3.9-5); Blood Urea Nitrogen 10 mg/dL (7-17); Calcium 9.8 mg/dL (8.4-10.2); Hemolysis Index 12
[2021-01-09 16:15] LABS: BUN/Creatinine Ratio 14
[2021-01-09] MEDS ORDERED: POTASSIUM CHLORIDE ER 20 MEQ TAB PO ONE (16:51)
[2021-01-09 17:14] LABS: Hematocrit 38.1 % (30.3-42.9); Mean Corpuscular HGB Conc 35 % (30-34); Mean Corpuscular Volume 99 fl (79-97); Platelet Count 317 K/mm3 (140-440); Red Blood Count 3.86 M/mm3 (3.65-5.03); Red Cell Distribution Width 13.2 % (13.2-15.2)
--- NOTE | 2021-01-09 17:36 | Emergency Department Report ---
<RUDDY TOMLIN - Last Filed: 01/09/21 18:39> ED HPI - General Chief complaint: Vaginal Bleeding Stated complaint: POSSIBLE MISCARRIAGE Time Seen by Provider: 01/09/21 15:17 Source: patient Mode of arrival: Ambulatory Limitations: No Limitations - History of Present Illness Initial comments: The patient was evaluated in the emergency department for symptoms described in the history of present illness. He/she was evaluated in the context of the global COVID-19 pandemic, which necessitated consideration that the patient might be at risk for infection with the virus that causes COVID-19. Institutional protocols and algorithms that pertain to the evaluation of patients at risk for COVID-19 are in a state of rapid change based on information released by regulatory bodies including the CDC and federal and sta organizations. These policies and algorithms were followed during the patient's care in the emergency department. Please note that these policies, procedures and recommendations changed on a rapid basis. 35-year-old -Maltese female presents to the emergency room for vaginal bleeding this morning. Patient states that she had a large liver like clot. She admits to some shortness of breath with nausea and vomiting. Patient states that the meds would help but then she will dry heave. Patient was seen here on January 03, 2021 for nausea and vomiting was noted that patient was . At that time she had an ultrasound showed that she was 8 weeks and 1 day. MD Complaint: vaginal bleeding -: This morning Location: pelvis Severity scale (0 -10): 6 Quality: cramping Consistency: constant Associated symptoms: nausea/vomiting :: Yes Number of weeks : 8 OB History - Previous Pregnancies: no complications - Related Data Previous Rx's Medication Instructions Recorded Last Taken Type HYDROcodone/APAP 5-325 [[place] 1 each PO Q6HR PRN #20 tablet 12/12/20 Unknown Rx 5/325] Ondansetron [Zofran Odt] 4 mg PO Q8HR PRN #30 tabdagodis 12/12/20 Unknown Rx Docusate Sodium [Colace] 100 mg PO BID PRN #10 capsule 01/03/21 Unknown Rx Metoclopramide [Reglan] 10 mg PO Q8HR PRN #14 tab 01/03/21 Unknown Rx Doxylamine Succinate/Vit B6 1 each PO BID #20 tablet. 01/09/21 Unknown Rx [Doxylamine-Pyridoxine 10-10 mg] Potassium Chloride [K-Dur] 20 meq PO BID #20 tab 01/09/21 Unknown Rx cephALEXin [Keflex] 500 mg PO Q8HR 7 Days cap 01/09/21 Unknown Rx Allergies Allergy/AdvReac Type Severity Reaction Status Date / Time No Known Allergies Allergy Unverified 10/05/18 04:27 ED Review of Systems Comment: All other systems reviewed and negative ED Past Medical Hx - Past Medical History Previous Medical History?: No - Surgical History Past Surgical History?: Yes Hx Appendectomy: Yes Additional Surgical History: Facial surgery. C/SX3 - Social History Smoking Status: Never Smoker Substance Use Type: Alcohol, Marijuana - Medications Home Medications: Home Medications Medication Instructions Recorded Confirmed Last Taken Type HYDROcodone/APAP 5-325 [[place] 1 each PO Q6HR PRN #20 tablet 12/12/20 Unknown Rx 5/325] Ondansetron [Zofran Odt] 4 mg PO Q8HR PRN #30 tab.rapdis 12/12/20 Unknown Rx Docusate Sodium [Colace] 100 mg PO BID PRN #10 capsule 01/03/21 Unknown Rx Metoclopramide [Reglan] 10 mg PO Q8HR PRN #14 tab 01/03/21 Unknown Rx Doxylamine Succinate/Vit B6 1 each PO BID #20 tablet. 01/09/21 Unknown Rx [Doxylamine-Pyridoxine 10-10 mg] Potassium Chloride [K-Dur] 20 meq PO BID #20 tab 01/09/21 Unknown Rx cephALEXin [Keflex] 500 mg PO Q8HR 7 Days cap 01/09/21 Unknown Rx ED Physical Exam - General Limitations: No Limitations ED Medical Decision Making - Lab Data Result diagrams: 01/09/21 15:25 01/09/21 15:25 - Medical Decision Making 35-year-old -Maltese female presents to the emergency room for vaginal bleeding this morning. Patient states that she had a large liver like clot. Sh e admits to some shortness of breath with nausea and vomiting. Patient states that the meds would help but then she will dry heave. Patient was seen here on January 03, 2021 for nausea and vomiting was noted that patient was . At that time she had an ultrasound showed that she was 8 weeks and 1 day. CBC CMP hCG urinalysis INT normal saline Reglan 10 ultrasound less than 14 weeks with transvaginal has been ordered. Transvaginal shows a 7 weeks 5 days compared to ultrasound on January 03, 2021 at 8 weeks and 1 day. hCG is elevated from 52,002 93,000. Urinalysis comes back positive for urinary tract infection. D-dimer was ordered as patient was having shortness of breath and chest pain it comes back positive at 463. CTA has been ordered and pending. ED RhoGam is pending. The patient's care has been transferred to and accepted by[ Susi Garcia PA-C }. We discussed: The patient's chief complaints; labs and imaging that have been completed and those that are still pending; any treatment provided and the patient's response to treatment; any significant change in condition; the treatment plan prior to the transfer of care. The accepting provider will foll ow up on all pending labs and imaging and make any necessary changes to the current impression and/or treatment plan. The accepting physician/midlevel is now responsible for the patient's care and final disposition. ED Disposition Clinical Impression: Hypokalemia UTI (urinary tract infection) Qualifiers: Urinary tract infection type: site unspecified Hematuria presence: with hematuria Qualified Code(s): N39.0 - Urinary tract infection, site not specified Qualifiers: Weeks of gestation: less than 8 weeks Qualified Code(s): Z3A.01 - Less than 8 weeks gestation of Nausea & vomiting Qualifiers: Vomiting type: unspecified Vomiting Intractability: unspecified Qualified Code(s): R11.2 - Nausea with vomiting, unspecified Disposition: HOME / SELF CARE / HOMELESS Is pt being admited?: No Does the pt Need Aspirin: No Condition: Stable Instructions: Hypokalemia, and Urinary Tract Infection Additional Instructions: Take Tylenol every 4 hours as needed for pain. Take Keflex with food as directed. Increase your dietary intake of probiotic rich foods while taking this medication. Take supplemental potassium as directed. Increase your dietary intake of potassium rich foods. Take Doxylamine + Pyridoxine as directed for nausea/vomiting. Rest. Drink plenty of fluids. Follow-up with raw scales operator this week. Call Tuesday to schedule an appointment. See referral information below. Return to the emergency department immediately for new or worsening symptoms. Specifically, return to the emergency department immediately for fever, worsening pain, dehydration, chest pain, shortness of breath, lower extremity pain/swelling, increased vaginal bleeding, or any other concerns. Prescriptions: Doxylamine Succinate/Vit B6 [Doxylamine-Pyridoxine 10-10 mg] 1 each PO BID #20 tablet. Potassium Chloride [K-Dur] 20 meq PO BID #20 tab cephALEXin [Keflex] 500 mg PO Q8HR 7 Days cap Referrals: [facility] [Provider Group] - 3-5 Days [facility] [Provider Group] - 3-5 Days [facility] [Provider Group] - 3-5 Days <SUSI GARCIA - Last Filed: 01/09/21 20:50> ED Review of Systems ROS: Stated complaint: POSSIBLE MISCARRIAGE Other details as noted in HPI ED Course Vital Signs 01/09/21 01/09/21 15:02 15:47 Temperature 99.1 F 98.6 F Pulse Rate 106 H 100 H Respiratory 19 20 Rate Blood Pressure 131/90 118/75 O2 Sat by Pulse 100 99 Oximetry ED Medical Decision Making - Lab Data Result diagrams: 01/09/21 15:25 01/09/21 15:25 - Medical Decision Making Care of patient transferred by Clotilde Tomlin PA-C at shift change. On reevaluation, patient remains stable. Resting comfortably. No further vomiting in the emergency department. Urinalysis consistent with UTI. Patient will be discharged home with prescription for Keflex as well as antiemetics and supplemental potassium. Referred to raw scales operator for close outpatient follow- up. Patient expressed understanding and is agreeable to plan of care. Dietary modifications discussed. Strict return precautions provided. Case discussed with Dr. Jose, attending emergency physician, who personally evaluated the patient and agrees with plan of care. Critical care attestation.: If time is entered above; I have spent that time in minutes in the direct care of this critically ill patient, excluding procedure time. ED Disposition Is pt being admited?: No Does the pt Need Aspirin: No Time of Disposition: 20:50
[2021-01-09 18:03] LABS: Bacteria,Urine 1+ /HPF (Negative); Bilirubin,Urine SM (Negative); Blood,Urine SM (Negative); Color,Urine Amber (Yellow); Mucus,Urine 3+ /HPF
--- NOTE | 2021-01-09 18:19 | Ultrasound Report ---
ULTRASOUND OBSTETRIC INDICATION / CLINICAL INFORMATION: vag bleeding. Clinical Gestational Age (GA) in weeks, days: 7, 5 TECHNIQUE: Transabdominal and Transvaginal. COMPARISON: None available. FINDINGS: GESTATIONAL SAC: Well-defined oval shape and intrauterine in location. YOLK SAC: No significant abnormality. EMBRYO/FETUS: No significant abnormality. - [place]-Rump Length = 1.4 cm = 7, 5 weeks, days - Heart Rate, beats per minute (if present) = 163 ADNEXA: No significant abnormality. FREE FLUID: None. ADDITIONAL FINDINGS: None. IMPRESSION: 1. Single, living intrauterine with estimated sonographic age of 17, 5 weeks, days. heart tones are noted at 163 bpm. Signer Name: Goran Vaca DO Signed: 01/09/2021 6:15 PM Workstation Name: [id number]
--- NOTE | 2021-01-09 18:19 | Ultrasound Report ---
ULTRASOUND OBSTETRIC INDICATION / CLINICAL INFORMATION: vag bleeding. Clinical Gestational Age (GA) in weeks, days: 7, 5 TECHNIQUE: Transabdominal and Transvaginal. COMPARISON: None available. FINDINGS: GESTATIONAL SAC: Well-defined oval shape and intrauterine in location. YOLK SAC: No significant abnormality. EMBRYO/FETUS: No significant abnormality. - [place]-Rump Length = 1.4 cm = 7, 5 weeks, days - Heart Rate, beats per minute (if present) = 163 ADNEXA: No significant abnormality. FREE FLUID: None. ADDITIONAL FINDINGS: None. IMPRESSION: 1. Single, living intrauterine with estimated sonographic age of 17, 5 weeks, days. heart tones are noted at 163 bpm. Signer Name: Goran Vaca DO Signed: 01/09/2021 6:15 PM Workstation Name: [email or web address]
[2021-01-09 18:21] LABS: Ictotest,Urine Negative (Negative)
--- NOTE | 2021-01-09 20:07 | Event Note ---
Face to Face: For this encounter I have reviewed the PA/CARPET INSPECTOR FINISHED documentation, treatment plan, medical decision making, and I had face to face time with this patient. CT angiogram of the chest was ordered by initial midlevel provider. Rationale was that the patient had a recent appendectomy and had some mild shortness of breath. Patient herself is endorsing that she feels that she was short of breath mainly just from being . Oxygen levels 100%. Very slight tachycardia which can be normal in is trended down. No leg swelling or tenderness. No pleuritic chest pain. Do not feel as though the patient will need a CTA of the chest at this time. Low probability clinically of pulmonary embolus. Told return if her shortness of breath worsens or she develops any pleuritic chest pain.
[2021-01-09 21:40] VITALS: BP 130/84
== END 2021-01-09 21:41 | disposition home or self-care (01) ==
LOC: ED 14:43
DX: O23.41 Unspecified infection of urinary tract in pregnancy, first trimester (principal); O21.8 Other vomiting complicating pregnancy; Z3A.08 8 weeks gestation of pregnancy; E87.6 Hypokalemia; Z90.89 Acquired absence of other organs; Z98.890 Other specified postprocedural states
CPT/HCPCS: 36415; 76801; 76817; 80053; 81001; 84702; 85025; 85379; 86900; 86901; 87086; 96361; 96374; 99284; J2765; J7030

== ENCOUNTER 2021-08-12 11:11 | Outpatient (CLI) | payer MEDICAID ==
[2021-08-12 11:44] VITALS: BP 110/80
--- NOTE | 2021-08-12 13:09 | Ultrasound Report ---
US OB BPP wo non-stress, US OB limited INDICATION / CLINICAL INFORMATION: decreased fm. COMPARISON: None available. FINDINGS: BREATHING MOVEMENT = 2 GROSS BODY MOVEMENT = 2 TONE = 2 QUALITATIVE AMNIOTIC FLUID VOLUME = 2 TOTAL BIOPHYSICAL SCORE = 8/8 AMNIOTIC FLUID INDEX (cm) = 10.9 PRESENTATION: Cephalic. HEART RATE (beats per minute): 167 IMPRESSION: 1. Single live intrauterine . No significant abnormality. 2. biophysical profile = 8 3. Normal amniotic fluid index. Signer Name: Rigo Fallon MD Signed: 08/12/2021 1:05 PM Workstation Name: [id number]
== END 2021-08-12 13:16 | disposition home or self-care (01) ==
LOC: TRG 11:11 → APU 11:12 → TRG 13:16
PROVIDERS: ATTEND Obstetrics & Gynecology
DX: O36.8130 Decreased fetal movements, third trimester, not applicable or unspecified (principal); Z3A.39 39 weeks gestation of pregnancy
CPT/HCPCS: 59025; 76815; 76819